=== PATIENT | female | born 1985 | race Caucasian/White ===

== ENCOUNTER 2017-03-20 09:23 | Emergency (ER) | payer MEDICAID ==
[2010-05-31 05:07] VITALS: BMI 29.1
[2017-03-20 09:57] LABS: BASOPHILS 0.3 % (0-2); EOSINOPHILS 1.5 % (0-7); HEMATOCRIT 35.7 % (36.0-48.0); IMMATURE GRANULOCYTES 0.9 % (0-5); LYMPHOCYTES 14.8 % (15-50); MCH 31.7 pg (26.0-34.0); MCHC 33.6 g/dL (31.0-37.0); MCV 94.4 fL (80.0-100.0); MEAN PLATELET VOLUME 9.7 fL (7.4-10.4); NEUTROPHILS 75.5 % (40-80); PLATELET COUNT 172 10x3/uL (130-400); RBC 3.78 10x6/uL (4.00-5.40); RDW 13.3 % (11.5-14.5); WBC 11.8 10x3/uL (4.8-10.8)
[2017-03-20 10:00] LABS: UDS - AMPHET POSITIVE QUAL (NEGATIVE); UDS - BARB NEGATIVE QUAL (NEGATIVE); UDS - BENZO NEGATIVE QUAL (NEGATIVE); UDS - COCAINE NEGATIVE QUAL (NEGATIVE); UDS - METH NEGATIVE QUAL (NEGATIVE); UDS - OPIATE NEGATIVE QUAL (NEGATIVE); UDS - PCP NEGATIVE QUAL (NEGATIVE); UDS - THC POSITIVE QUAL (NEGATIVE)
[2017-03-20 10:01] LABS: APPEARANCE CLEAR (CLEAR); BILIRUBIN NEGATIVE (NEGATIVE); COLOR YELLOW (YELLOW); GLUCOSE NEGATIVE (NEGATIVE); KETONE NEGATIVE (NEGATIVE); LEUKOCYTE ESTERASE TRACE (NEGATIVE); NITRITE NEGATIVE (NEGATIVE); PROTEIN NEGATIVE (NEGATIVE); UROBILINOGEN NORMAL (NORMAL)
[2017-03-20 10:04] LABS: EPITHELIAL CELLS 0-5 /hpf (0-5); WHITE CELLS - URINE 0-5 /hpf (0-5)
[2017-03-20 10:12] LABS: HCG SERUM POSITIVE (NEGATIVE)
[2017-03-20 10:12] LABS: BACTERIA MODERATE /hpf (NONE SEEN)
[2017-03-20 10:36] LABS: ALBUMIN 2.6 g/dL (3.4-5.0); ALKALINE PHOSPHATASE 66 U/L (46-116); ALT (SGPT) 11 U/L (10-68); CALC OSMOLALITY 271 mosm/kg (275-300); CALCIUM 8.6 mg/dL (8.5-10.1); CARBON DIOXIDE 25.5 mmol/L (21.0-32.0); CHLORIDE - SERUM 104 mmol/L (98-107); CREATININE - SERUM 0.5 mg/dL (0.6-1.3); GLUCOSE 85 mg/dL (74-106); POTASSIUM - SERUM 3.5 mmol/L (3.5-5.1); PROTEIN - SERUM 6.4 g/dL (6.4-8.2); SODIUM 138 mmol/L (136-145); UREA NITROGEN 4 mg/dL (7-18); eGFR NON AFRICAN AMERICAN > 90 mL/min (90-120)
[2017-03-20 11:03] LABS: HCG - QUANTITATIVE (MATERNAL) 38179 mIU/mL
== END 2017-03-20 12:35 | disposition home or self-care (01) ==
LOC: D.ER 09:23
PROVIDERS: Emergency Medicine
DX: O26.891 Other specified pregnancy related conditions, first trimester (principal); Z3A.14 14 weeks gestation of pregnancy; F17.200 Nicotine dependence, unspecified, uncomplicated

== ENCOUNTER 2017-03-27 16:58 | Emergency (ER) | payer MEDICAID ==
[2010-05-31 05:07] VITALS: BMI 29.1
== END 2017-03-27 18:09 | disposition home or self-care (01) ==
LOC: D.ER 16:58
DX: Z34.82 Encounter for supervision of other normal pregnancy, second trimester (principal); Z3A.20 20 weeks gestation of pregnancy; W19.XXXA Unspecified fall, initial encounter; S93.402A Sprain of unspecified ligament of left ankle, initial encounter; M25.472 Effusion, left ankle

== ENCOUNTER 2017-07-25 07:45 | Inpatient (IN) | payer MEDICAID ==
[~2017-07-25] VITALS: Ht 152.4 cm; Wt 79.4 kg
[2017-07-25 09:58] LABS: BASOPHILS 0.1 % (0-2); EOSINOPHILS 0.1 % (0-7); HEMATOCRIT 35.1 % (36.0-48.0); HEMOGLOBIN 11.8 g/dL (12-16); IMMATURE GRANULOCYTES 1.1 % (0-5); MCHC 33.6 g/dL (31.0-37.0); MCV 86.2 fL (80.0-100.0); MEAN PLATELET VOLUME 9.8 fL (7.4-10.4); MONOCYTES 6.1 % (2-11); NEUTROPHILS 81.6 % (40-80); RBC 4.07 10x6/uL (4.00-5.40); RDW 13.2 % (11.5-14.5); WBC 15.2 10x3/uL (4.8-10.8)
[2017-07-25 09:59] LABS: PLATELET COUNT 398 10x3/uL (130-400)
[2017-07-25 10:25] LABS: APPEARANCE HAZY (CLEAR); BILIRUBIN NEGATIVE (NEGATIVE); COLOR YELLOW (YELLOW); GLUCOSE NEGATIVE (NEGATIVE); KETONE NEGATIVE (NEGATIVE); NITRITE NEGATIVE (NEGATIVE); PROTEIN 1+ mg/dL (NEGATIVE); SPECIFIC GRAVITY 1.005 (1.005-1.020); UROBILINOGEN NORMAL (NORMAL)
[2017-07-25 10:26] LABS: BACTERIA MANY /hpf (NONE SEEN); EPITHELIAL CELLS 0-5 /hpf (0-5); RED CELLS - URINE 0-5 /hpf (0-5)
[2017-07-25 10:30] LABS: ALBUMIN 1.8 g/dL (3.4-5.0); ALKALINE PHOSPHATASE 215 U/L (46-116); ALT (SGPT) 11 U/L (10-68); AMYLASE - SERUM 65 U/L (25-115); BILIRUBIN - TOTAL 0.19 mg/dL (0.2-1.3); CALC OSMOLALITY 270 mosm/kg (275-300); CALCIUM 9.2 mg/dL (8.5-10.1); CARBON DIOXIDE 24.5 mmol/L (21.0-32.0); CHLORIDE - SERUM 100 mmol/L (98-107); CREATININE - SERUM 0.8 mg/dL (0.6-1.3); GLUCOSE 86 mg/dL (74-106); LIPASE 125 U/L (73-393); POTASSIUM - SERUM 3.9 mmol/L (3.5-5.1); PROTEIN - SERUM 7.1 g/dL (6.4-8.2); SODIUM 137 mmol/L (136-145); UREA NITROGEN 7 mg/dL (7-18); eGFR NON AFRICAN AMERICAN 89 mL/min (90-120)
[2017-07-25 10:34] LABS: UDS - AMPHET NEGATIVE QUAL (NEGATIVE); UDS - BARB NEGATIVE QUAL (NEGATIVE); UDS - BENZO NEGATIVE QUAL (NEGATIVE); UDS - COCAINE NEGATIVE QUAL (NEGATIVE); UDS - OPIATE NEGATIVE QUAL (NEGATIVE); UDS - PCP NEGATIVE QUAL (NEGATIVE); UDS - THC POSITIVE QUAL (NEGATIVE)
[2017-07-25] MEDS ORDERED: PRENATAL COMPLE1 TAB PO (12:25)
[2017-07-25 12:26] VITALS: BP 120/73; BMI 34.2
[2017-07-25 22:50] VITALS: BP 130/82
[2017-07-26 04:03] VITALS: BP 157/87
[2017-07-26 06:14] LABS: BASOPHILS 0.1 % (0-2); EOSINOPHILS 0.6 % (0-7); HEMATOCRIT 30.4 % (36.0-48.0); HEMOGLOBIN 9.9 g/dL (12-16); LYMPHOCYTES 13.6 % (15-50); MCH 28.7 pg (26.0-34.0); MCHC 32.6 g/dL (31.0-37.0); MCV 88.1 fL (80.0-100.0); MEAN PLATELET VOLUME 9.8 fL (7.4-10.4); MONOCYTES 7.1 % (2-11); NEUTROPHILS 77.6 % (40-80); PLATELET COUNT 345 10x3/uL (130-400); RBC 3.45 10x6/uL (4.00-5.40); RDW 13.2 % (11.5-14.5); WBC 18.1 10x3/uL (4.8-10.8)
[2017-07-26 06:34] LABS: ALBUMIN 1.4 g/dL (3.4-5.0); ALKALINE PHOSPHATASE 161 U/L (46-116); ALT (SGPT) 9 U/L (10-68); CALCIUM 8.5 mg/dL (8.5-10.1); CARBON DIOXIDE 24.9 mmol/L (21.0-32.0); CHLORIDE - SERUM 104 mmol/L (98-107); CREATININE - SERUM 0.9 mg/dL (0.6-1.3); GLUCOSE 100 mg/dL (74-106); POTASSIUM - SERUM 3.9 mmol/L (3.5-5.1); PROTEIN - SERUM 5.4 g/dL (6.4-8.2); SODIUM 138 mmol/L (136-145); eGFR NON AFRICAN AMERICAN 78 mL/min (90-120)
[2017-07-26 06:35] LABS: BILIRUBIN - TOTAL 0.07 mg/dL (0.2-1.3); CALC OSMOLALITY 272 mosm/kg (275-300); UREA NITROGEN 4 mg/dL (7-18)
[2017-07-26 08:19] VITALS: BP 131/92
[2017-07-26 19:39] VITALS: BP 152/73
[2017-07-27 00:21] VITALS: BP 114/64
[2017-07-27 03:08] VITALS: BP 130/81
[2017-07-27 07:12] VITALS: BP 126/86
[2017-07-27 09:47] LABS: BASOPHILS 0.3 % (0-2); EOSINOPHILS 2.5 % (0-7); HEMOGLOBIN 10.5 g/dL (12-16); LYMPHOCYTES 25.7 % (15-50); MCH 28.6 pg (26.0-34.0); MCHC 31.8 g/dL (31.0-37.0); MCV 89.9 fL (80.0-100.0); MEAN PLATELET VOLUME 9.1 fL (7.4-10.4); MONOCYTES 5.3 % (2-11); NEUTROPHILS 63.2 % (40-80); PLATELET COUNT 367 10x3/uL (130-400); RBC 3.67 10x6/uL (4.00-5.40); RDW 13.3 % (11.5-14.5); WBC 10.8 10x3/uL (4.8-10.8)
[2017-07-27 13:28] VITALS: BP 132/87
[2017-07-27 14:54] VITALS: Ht 152.4 cm; Wt 79.4 kg
[2017-07-27 19:17] VITALS: BP 134/84
[2017-07-28 03:10] LABS: RAPID PLASMA REAGIN Non Reactive (Non Reactive)
[2017-07-28 07:05] VITALS: BP 118/82
[2017-07-28] MEDS ORDERED: HYDROCODON-ACE1 EAC7 PO ×2 (07:29→13:29)
[2017-07-28] MEDS ORDERED: IBUPROFEN600 MG PO ×2 (07:30→13:29)
[2017-07-28 12:17] LABS: HEPATITIS C ANTIBODY <0.1 (0.0-0.9)
[2017-07-28] MEDS ORDERED: AUGMENTIN 875-11 TAB PO (13:34)
[2017-07-28 20:08] LABS: RUBELLA IGG 1.31 index (Immune >0.99)
[2017-08-01 10:08] LABS: UDSC - AMPHET Negative ng/mL (Cutoff=1000); UDSC - BARB Negative ng/mL (Cutoff=300); UDSC - BENZO Negative ng/mL (Cutoff=300); UDSC - COC Negative ng/mL (Cutoff=300); UDSC - METH Negative ng/mL (Cutoff=300); UDSC - OPIATES Negative ng/mL (Cutoff=300); UDSC - PCP Negative ng/mL (Cutoff=25); UDSC - PROPOXY Negative ng/mL (Cutoff=300); UDSC - THC Positive (Cutoff=50)
--- NOTE | 2017-09-19 06:53 | DS ---
PATIENT:SHELDON SETHI :89 MEDICAL RECORD: [id number] DISCHARGE SUMMARY ADMISSION DATE: 07/25/17 DISCHARGE DATE: 07/28/17 DATE OF ADMISSION: The patient was admitted on 07/25/2017. HISTORY OF PRESENT ILLNESS: A 32-year-old at 36 weeks and 1 day, who presented with no care with nausea, vomiting and contractions. The patient was noted to be O positive with an unknown group B strep status as labs had not been obtained. The patient had a past medical history significant for polysubstance abuse and no care. The patient reported no medication allergies. Lungs clear to auscultation. Cardiovascular was regular rate and rhythm. Uterus was appropriately sized. The patient has no lower extremity swelling or Homans sign. The patient reported no significant family medical history. The patient reported social history significant for positive cigarette use and also use of marijuana and methamphetamine. Initial wellbeing: heart rate was in the 130s with moderate variability, category 1 tracing. Admit hemoglobin was found to be 11.8 with a white count of 15.2, platelet count of 398. Admit urine drug screen was positive for only marijuana. At that time also, the patient had urinalysis that revealed white blood cell count of approximately 10-25 and 2+ leukocyte esterase. ASSESSMENT AND PLAN: 1. At that time, intrauterine at 36 weeks based on ultrasound performed at our institution on day of admit. 2. Suspected pyelonephritis with urine wbc of 25 and white blood cell count of approximately 15. 3. The patient also with nausea and vomiting, no electrolyte abnormalities noted. No evidence of cholelithiasis or pancreatitis, no evidence of ketosis. 4. Polysubstance abuse. 5. No care. HOSPITAL COURSE: Plan at that time was to treat for pyelonephritis, IV hydration, and monitor for labor. wellbeing was reassuring at the time of category 1 tracing. Keep n.p.o. at that time due to nausea and vomiting. As mentioned ultrasound was performed, which revealed an REBECCA of 08/21/2017 and bilateral renal pyelectasis, no evidence of cholelithiasis. The patient was monitored closely for appendicitis. During the admission, the patient with progression of uterine contractions and labor and patient quickly progressed to 7-8 cm with spontaneous rupture of membranes, category 1 tracing remained. Patient progressed to the second stage of labor and had a normal spontaneous vaginal delivery over an intact perineum. Delivery note is as on the chart. The patient did well overnight on day #0, tolerating p.o. pain meds, general diet, ambulating well and voiding freely. On the morning of day #1, hospital day #2 for pyelonephritis, vital signs were stable. The patient was afebrile. Uterus was infraumbilical and nontender with minimal lochia. White blood cell count had elevated to 18, likely secondary to delivery. The patient was continued on antibiotics with plan to recheck serial white blood cell count in the following morning. The patient did well overnight on day #1. On the morning of day #2, admit urine culture was not found and was repeated on that day. IV antibiotics were continued. On the morning of day #3 as the patient had been afebrile for 48 hours and white blood cell count had normalized, the patient was discharged home with DISCHARGE SUMMARY REPORT [id number] SHELDON SETHI p.o. antibiotics with instructions to continue for 10 days, no other infectious signs or symptoms were noted. White blood cell count as mentioned had decreased and hemoglobin was found to be stable. The patient was discharged home on the morning of day #3 with instructions to follow up in 2 weeks. 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
== END 2017-07-28 16:05 | disposition home or self-care (01) | DRG 774 ==
LOC: D.LDO 07:45 → D.LD 14:27 → D.WS 22:52 → D.LD 07-26 13:05
PROVIDERS: ADMIT Obstetrics & Gynecology
PROC: 10E0XZZ Delivery of Products of Conception, External Approach (ICD-10-PCS; principal; 2017-07-25)
DX: O75.3 Other infection during labor (principal); N12 Tubulo-interstitial nephritis, not specified as acute or chronic; O99.324 Drug use complicating childbirth; Z3A.36 36 weeks gestation of pregnancy; Z37.0 Single live birth; F15.90 Other stimulant use, unspecified, uncomplicated; F12.90 Cannabis use, unspecified, uncomplicated; O09.33 Supervision of pregnancy with insufficient antenatal care, third trimester; O99.334 Smoking (tobacco) complicating childbirth

== ENCOUNTER 2018-05-02 16:39 | Inpatient (IN) | payer MEDICAID ==
[~2018-05-02] VITALS: Ht 170.2 cm; Wt 64.9 kg
[~2018-05-02 16:39] MED LIST: AUGMENTIN 875-11 TAB PO; HYDROCODON-ACE1 EAC7 PO; IBUPROFEN600 MG PO; PRENATAL COMPLE1 TAB PO
[2018-05-02 17:11] LABS: APPEARANCE CLEAR (CLEAR); BILIRUBIN NEGATIVE (NEGATIVE); COLOR YELLOW (YELLOW); GLUCOSE 50 mg/dL (NEGATIVE); KETONE NEGATIVE (NEGATIVE); NITRITE NEGATIVE (NEGATIVE); PROTEIN 1+ mg/dL (NEGATIVE); SPECIFIC GRAVITY 1.015 (1.005-1.020); UROBILINOGEN NORMAL (NORMAL)
[2018-05-02 17:13] LABS: BACTERIA MODERATE /hpf (NONE SEEN); RED CELLS - URINE 0-5 /hpf (0-5)
[2018-05-02 17:36] LABS: UDS - AMPHET NEGATIVE QUAL (NEGATIVE); UDS - BARB NEGATIVE QUAL (NEGATIVE); UDS - BENZO NEGATIVE QUAL (NEGATIVE); UDS - COCAINE NEGATIVE QUAL (NEGATIVE); UDS - OPIATE NEGATIVE QUAL (NEGATIVE); UDS - PCP NEGATIVE QUAL (NEGATIVE); UDS - THC POSITIVE QUAL (NEGATIVE)
[2018-05-02 18:18] LABS: HEMATOCRIT 28.5 % (36.0-48.0); HEMOGLOBIN 9.1 g/dL (12-16); MCH 27.7 pg (26.0-34.0); MCHC 31.9 g/dL (31.0-37.0); MCV 86.6 fL (80.0-100.0); MEAN PLATELET VOLUME 9.4 fL (7.4-10.4); PLATELET COUNT 332 10x3/uL (130-400); RBC 3.29 10x6/uL (4.00-5.40); RDW 14.6 % (11.5-14.5); WBC 25.6 10x3/uL (4.8-10.8)
[2018-05-02 19:16] LABS: LYMPHOCYTES 16 % (15-50); MONOCYTES 10 % (2-11); NEUTROPHILS 74 % (40-80)
[2018-05-02 19:17] LABS: PLATELET ESTIMATE INCREASED
[2018-05-02 19:23] LABS: HIV 1 & 2- RAPID SCREEN NEGATIVE (NEGATIVE)
[2018-05-02 19:43] VITALS: BP 113/56; BMI 22.4
[2018-05-03 12:30] VITALS: Ht 170.2 cm; Wt 64.9 kg
[2018-05-03 13:30] LABS: BASOPHILS 0.2 % (0-2); EOSINOPHILS 1.1 % (0-7); HEMATOCRIT 26.3 % (36.0-48.0); HEMOGLOBIN 8.3 g/dL (12-16); IMMATURE GRANULOCYTES 1.4 % (0-5); LYMPHOCYTES 11.5 % (15-50); MCH 27.6 pg (26.0-34.0); MCHC 31.6 g/dL (31.0-37.0); MCV 87.4 fL (80.0-100.0); MEAN PLATELET VOLUME 9.3 fL (7.4-10.4); MONOCYTES 9.8 % (2-11); PLATELET COUNT 293 10x3/uL (130-400); RBC 3.01 10x6/uL (4.00-5.40); RDW 14.8 % (11.5-14.5); WBC 22.9 10x3/uL (4.8-10.8)
[2018-05-03 19:20] VITALS: BP 119/64
[2018-05-04 00:04] VITALS: BP 115/63
[2018-05-04 05:18] VITALS: BP 117/64
[2018-05-04 07:26] LABS: RAPID PLASMA REAGIN Non Reactive (Non Reactive)
[2018-05-04 07:50] VITALS: BP 102/60
[2018-05-04] MEDS ORDERED: KEFLEX500 MG PO (08:41)
[2018-05-04] MEDS ORDERED: FERROUS SULFAT325 MG PO (08:42)
[2018-05-04 10:45] LABS: BASOPHILS 0.3 % (0-2); EOSINOPHILS 1.9 % (0-7); HEMATOCRIT 26.4 % (36.0-48.0); HEMOGLOBIN 8.1 g/dL (12-16); IMMATURE GRANULOCYTES 2.9 % (0-5); LYMPHOCYTES 15.1 % (15-50); MCH 26.6 pg (26.0-34.0); MCHC 30.7 g/dL (31.0-37.0); MCV 86.8 fL (80.0-100.0); MEAN PLATELET VOLUME 9.3 fL (7.4-10.4); MONOCYTES 10.1 % (2-11); NEUTROPHILS 69.7 % (40-80); PLATELET COUNT 297 10x3/uL (130-400); RBC 3.04 10x6/uL (4.00-5.40); RDW 14.8 % (11.5-14.5)
[2018-05-04 10:49] LABS: WBC 15.9 10x3/uL (4.8-10.8)
[2018-05-04 15:23] LABS: HEPATITIS C ANTIBODY <0.1 (0.0-0.9)
[2018-05-06 22:15] LABS: CHLAMYDIA TRACHOMATIS, NAA Negative (Negative)
[2018-05-21] MEDS ORDERED: TYLENOL W/CODEI1 TAB PO (08:45)
[2018-05-21] MEDS ORDERED: IBUPROFEN800 MG PO (08:46)
== END 2018-05-04 11:48 | disposition home or self-care (01) | DRG 781 ==
LOC: D.LDO 16:39 → D.LD 18:53 → D.WS 05-03 19:55
PROVIDERS: Obstetrics & Gynecology
DX: O23.03 Infections of kidney in pregnancy, third trimester (principal); O98.313 Other infections with a predominantly sexual mode of transmission complicating pregnancy, third trimester; O99.323 Drug use complicating pregnancy, third trimester; A59.9 Trichomoniasis, unspecified; Z3A.35 35 weeks gestation of pregnancy; O99.333 Smoking (tobacco) complicating pregnancy, third trimester; O99.013 Anemia complicating pregnancy, third trimester; F12.10 Cannabis abuse, uncomplicated; O09.33 Supervision of pregnancy with insufficient antenatal care, third trimester

== ENCOUNTER → 2018-05-12 08:26 | Outpatient (CLI) | payer MEDICAID ==
[2018-05-03 12:30] VITALS: BMI 22.4
[~2018-05-12 08:26] MED LIST changes: +FERROUS SULFAT325 MG PO; +IBUPROFEN800 MG PO; +KEFLEX500 MG PO; +TYLENOL W/CODEI1 TAB PO
== END | disposition home or self-care (01) ==
LOC: D.LDO 08:26
DX: O36.8130 Decreased fetal movements, third trimester, not applicable or unspecified (principal); Z3A.36 36 weeks gestation of pregnancy

== ENCOUNTER 2018-05-18 05:09 | Inpatient (IN) | payer MEDICAID ==
[~2018-05-18] VITALS: Ht 170.2 cm; Wt 66.7 kg
[~2018-05-18 05:09] MED LIST changes: -IBUPROFEN800 MG PO; -TYLENOL W/CODEI1 TAB PO
[2018-05-18 05:25] VITALS: BP 144/89; Ht 170.2 cm; Wt 66.7 kg
[2018-05-18 06:16] LABS: HEMATOCRIT 31.4 % (36.0-48.0); MCH 26.9 pg (26.0-34.0); MCHC 31.8 g/dL (31.0-37.0); MCV 84.4 fL (80.0-100.0); MEAN PLATELET VOLUME 10.1 fL (7.4-10.4); RBC 3.72 10x6/uL (4.00-5.40); RDW 16.1 % (11.5-14.5); WBC 16.6 10x3/uL (4.8-10.8)
[2018-05-18 06:28] LABS: UDS - BARB NEGATIVE QUAL (NEGATIVE); UDS - BENZO NEGATIVE QUAL (NEGATIVE); UDS - COCAINE NEGATIVE QUAL (NEGATIVE); UDS - OPIATE NEGATIVE QUAL (NEGATIVE); UDS - PCP NEGATIVE QUAL (NEGATIVE); UDS - THC POSITIVE QUAL (NEGATIVE)
[2018-05-18 07:19] LABS: UDS - AMPHET POSITIVE QUAL (NEGATIVE)
[2018-05-18 07:28] LABS: APPEARANCE SL CLDY (CLEAR); COLOR DK YELLOW (YELLOW); NITRITE NEGATIVE (NEGATIVE); PROTEIN NEGATIVE (NEGATIVE); SPECIFIC GRAVITY 1.025 (1.005-1.020)
[2018-05-18 07:29] LABS: BACTERIA FEW /hpf (NONE SEEN); BILIRUBIN NEGATIVE (NEGATIVE); GLUCOSE NEGATIVE (NEGATIVE); KETONE LARGE mg/dL (NEGATIVE); MUCUS >1+ /lpf (NONE SEEN); RED CELLS - URINE 25-50 /hpf (0-5)
[2018-05-18 19:57] VITALS: BP 141/86
[2018-05-19] VITALS (8 sets, daily range): BP systolic 83–123; BP diastolic 48–78
[2018-05-19 05:04] LABS: BASOPHILS 0.3 % (0-2); EOSINOPHILS 1.6 % (0-7); HEMATOCRIT 27.1 % (36.0-48.0); HEMOGLOBIN 8.5 g/dL (12-16); IMMATURE GRANULOCYTES 1.3 % (0-5); LYMPHOCYTES 23.9 % (15-50); MCH 26.7 pg (26.0-34.0); MCHC 31.4 g/dL (31.0-37.0); MCV 85.2 fL (80.0-100.0); MEAN PLATELET VOLUME 9.5 fL (7.4-10.4); MONOCYTES 8.9 % (2-11); PLATELET COUNT 392 10x3/uL (130-400); RBC 3.18 10x6/uL (4.00-5.40); RDW 16.1 % (11.5-14.5)
[2018-05-19 05:14] LABS: WBC 11.7 10x3/uL (4.8-10.8)
[2018-05-19 08:20] LABS: RAPID PLASMA REAGIN Non Reactive (Non Reactive)
[2018-05-20 07:05] VITALS: BP 123/77
[2018-05-21] MEDS ORDERED: TYLENOL W/CODEI1 TAB PO (08:45)
[2018-05-21] MEDS ORDERED: IBUPROFEN800 MG PO (08:46)
== END 2018-05-20 15:40 | disposition home or self-care (01) | DRG 767 ==
LOC: D.LD 05:09
PROVIDERS: Obstetrics & Gynecology
PROC: 10E0XZZ Delivery of Products of Conception, External Approach (ICD-10-PCS; principal; 2018-05-18)
PROC: 10907ZC Drainage of Amniotic Fluid, Therapeutic from Products of Conception, Via Natural or Artificial Opening (ICD-10-PCS; 2018-05-18)
PROC: 0UB74ZZ Excision of Bilateral Fallopian Tubes, Percutaneous Endoscopic Approach (ICD-10-PCS; 2018-05-19 08:45)
DX: O98.32 Other infections with a predominantly sexual mode of transmission complicating childbirth (principal); O99.324 Drug use complicating childbirth; Z3A.37 37 weeks gestation of pregnancy; Z37.0 Single live birth; F15.90 Other stimulant use, unspecified, uncomplicated; O99.334 Smoking (tobacco) complicating childbirth; O99.02 Anemia complicating childbirth